=== PATIENT | female | born 1980 | race Caucasian/White ===

== ENCOUNTER 2022-02-22 13:25 | Emergency (ER) | payer BC ==
[~2022-02-22] VITALS: Ht 162.6 cm; Wt 108.9 kg
[~2022-02-22 13:25] MED LIST: AMOX500 PO; BUPR1 PO; CARI350; CEFP200 PO; CEPH500 PO; CLON1; CYCL10 PO; DEXT40GEL PO; DOCU100 PO; DOXY100 PO; Diflucan100 MG PO; Diflucan150 MG PO; ESCI10; ESCI20; ESTRADIOL1 MG PO; FENT100TP; FENT100TP TOP; FENT50TP TOP; Flagyl500 MG PO; HYDACE10B PO; HYDACE5 PO; HYDMOR2 PO; IBUHYD PO; IBUP600 PO; IBUP800 PO; KETO10 PO; LAMO100; LAMO25; LORA1 PO; MECL25 PO; META800 PO; NAPR500 PO; NAPR550 PO; NITR100CA PO; Norco 5-325 Ta1 EACH PO; O; ONDA4ODT MM; OXYACE10; OXYACE5T PO; OXYC20ER; OXYC5; PREG300 PO; PRENZ; PROC10 PO; PROM25 PO; QUET100; QUET25; RANI150 PO; RXCYCL10 PO; RXHYDMOR2 PO; RXNAPNA550 PO; RXTRAM50 PO; SUBOXONE 8 MG-1 EACH SL; TRAM50 PO; Valtrex1000 MG PO; Vibramycin100 MG PO; Zantac150 MG PO; Zofran Odt4 MG SL; [UNRECOGNIZED DRUG - OTHER]
[2022-02-22] MEDS ORDERED: IBU600 M1 PO (16:30)
[2022-02-22] MEDS ORDERED: CYCL10 PO (16:30)
[2022-02-22] MEDS ORDERED: METPRE4DP PO (16:30)
== END 2022-02-22 16:50 | disposition home or self-care (01) ==
LOC: ER 13:25
DX: M54.50 Low back pain, unspecified (principal); W18.30XA Fall on same level, unspecified, initial encounter; Z79.899 Other long term (current) drug therapy
CPT/HCPCS: 72100; A9270; J1885

== ENCOUNTER 2022-05-01 18:37 | Emergency (ER) | payer BC ==
[~2022-05-01] VITALS: Ht 162.6 cm; Wt 108.9 kg
[~2022-05-01 18:37] MED LIST changes: +IBU600 M1 PO; +METPRE4DP PO
[2022-05-01] MEDS ORDERED: PROZAC2010 PO (18:53)
[2022-05-01] MEDS ORDERED: ZOLOFT10013 PO (18:53)
[2022-05-01] MEDS ORDERED: LAMOTRIGINE100 M1 PO (18:53)
[2022-05-01] MEDS ORDERED: Vistaril50 MG PO (18:54)
[2022-05-01] MEDS ORDERED: Naltrexone HCl50 MG PO (18:54)
[2022-05-01] MEDS ORDERED: RISPERIDONE2 M9 PO (18:55)
[2022-05-01] MEDS ORDERED: ROPINIROLE HCL1 MG PO (18:55)
[2022-05-01 19:18] LABS: BASOPHILS ABSOLUTE AUTO 0.03 K/mm3 (0.00-0.23); BASOPHILS PERCENT AUTO 1 % (0-2); EOSINOPHILS ABSOLUTE AUTO 0.11 K/mm3 (0.00-0.68); EOSINOPHILS PERCENT AUTO 2 % (0-6); Hematocrit 34.8 % (33.0-51.0); Hemoglobin 11.7 g/dL (11.5-16.0); IMMATURE GRAN ABSOLUTE AUTO 0.01 K/mm3 (0.00-0.10); IMMATURE GRAN PERCENT AUTO 0 % (0-1); LYMPHOCYTES ABSOLUTE AUTO 1.83 K/mm3 (0.84-5.20); LYMPHOCYTES PERCENT AUTO 34 % (21-46); MONOCYTES ABSOLUTE AUTO 0.57 K/mm3 (0.16-1.47); MONOCYTES PERCENT AUTO 11 % (4-13); Mean Corpuscular HGB 27.6 pg (26.0-34.0); Mean Corpuscular HGB Conc 33.6 g/dL (31.5-36.5); Mean Corpuscular Volume 82 fL (80-100); NEUTROPHILS ABSOLUTE AUTO 2.79 K/mm3 (1.96-9.15); NEUTROPHILS PERCENT AUTO 52 % (41-73); Platelet Count 145 K/mm3 (150-400); RDW Coefficient Variation 14.1 % (11.7-14.2); RDW Standard Deviation 41.6 fL (35.1-46.3); Red Blood Cell Count 4.24 M/mm3 (3.80-5.20); White Blood Cell Count 5.34 K/mm3 (4.00-11.30)
[2022-05-01 19:30] LABS: Albumin, Blood 3.3 g/dL (3.4-5.0); Bilirubin, Total 0.2 mg/dL (0.1-1.0); Bun/Creatinine Ratio 10.4 (12.0-20.0); Calcium, Blood 7.8 mg/dL (8.5-10.1); Creatinine, Blood 1.06 mg/dL (0.40-1.00); Globulin, Blood 3.4 g/dL (2.2-4.0); Potassium, Blood 3.4 mmol/L (3.5-5.5); Total Protein, Blood 6.7 g/dL (6.4-8.2)
== END 2022-05-01 22:25 | disposition home or self-care (01) ==
LOC: ER 18:37
PROVIDERS: Student in an Organized Health Care Education/Training Program
DX: R07.9 Chest pain, unspecified (principal); Z79.899 Other long term (current) drug therapy
CPT/HCPCS: 80053; 83690; 84484; 85025; 93005; 93010

== ENCOUNTER 2022-06-08 02:24 | Emergency (ER) | payer BC ==
[~2022-06-08] VITALS: Ht 162.6 cm; Wt 98.4 kg
[~2022-06-08 02:24] MED LIST changes: +LAMOTRIGINE100 M1 PO; +Naltrexone HCl50 MG PO; +PROZAC2010 PO; +RISPERIDONE2 M9 PO; +ROPINIROLE HCL1 MG PO; +Vistaril50 MG PO; +ZOLOFT10013 PO
[2022-06-08 02:41] LABS: BASOPHILS ABSOLUTE AUTO 0.07 K/mm3 (0.00-0.23); BASOPHILS PERCENT AUTO 1 % (0-2); EOSINOPHILS ABSOLUTE AUTO 0.01 K/mm3 (0.00-0.68); EOSINOPHILS PERCENT AUTO 0 % (0-6); Hematocrit 42.4 % (33.0-51.0); Hemoglobin 14.6 g/dL (11.5-16.0); IMMATURE GRAN PERCENT AUTO 1 % (0-1); LYMPHOCYTES ABSOLUTE AUTO 1.52 K/mm3 (0.84-5.20); LYMPHOCYTES PERCENT AUTO 12 % (21-46); MONOCYTES ABSOLUTE AUTO 0.56 K/mm3 (0.16-1.47); MONOCYTES PERCENT AUTO 4 % (4-13); Mean Corpuscular HGB 28.1 pg (26.0-34.0); Mean Corpuscular HGB Conc 34.4 g/dL (31.5-36.5); Mean Corpuscular Volume 82 fL (80-100); Mean Platelet Volume 8.9 fL (9.1-12.4); NEUTROPHILS ABSOLUTE AUTO 10.78 K/mm3 (1.96-9.15); NEUTROPHILS PERCENT AUTO 83 % (41-73); Platelet Count 185 K/mm3 (150-400); RDW Coefficient Variation 16.1 % (11.7-14.2); RDW Standard Deviation 44.7 fL (35.1-46.3); Red Blood Cell Count 5.19 M/mm3 (3.80-5.20); White Blood Cell Count 13.04 K/mm3 (4.00-11.30)
[2022-06-08 02:59] LABS: Albumin, Blood 4.4 g/dL (3.4-5.0); Albumin/Globulin Ratio 1.1 (0.8-1.8); Bilirubin, Total 0.3 mg/dL (0.1-1.0); Bun/Creatinine Ratio 10.3 (12.0-20.0); Calcium, Blood 8.8 mg/dL (8.5-10.1); Creatinine, Blood 0.88 mg/dL (0.40-1.00); Potassium, Blood 3.1 mmol/L (3.5-5.5); Total Protein, Blood 8.4 g/dL (6.4-8.2)
[2022-06-08] MEDS ORDERED: CELEBREX200 MG PO (03:09)
[2022-06-08] MEDS ORDERED: NEURONTIN40010 PO (03:10)
[2022-06-08] MEDS ORDERED: ATOMOXETINE HCL40 M3 PO (03:11)
[2022-06-08] MEDS ORDERED: OZEMPIC0.25 MG/01 SQ (03:12)
[2022-06-08 06:00] VITALS: BP 123/90
== END 2022-06-08 06:08 | disposition home or self-care (01) ==
LOC: ER 02:24
PROVIDERS: Student in an Organized Health Care Education/Training Program
DX: R51.9 Headache, unspecified (principal); E87.6 Hypokalemia; F31.9 Bipolar disorder, unspecified; Z79.899 Other long term (current) drug therapy
CPT/HCPCS: 80053; 85025; A9270; J1200; J1885; J2405; J2765; J3010; J3475; J7030

== ENCOUNTER 2022-12-22 10:39 | Emergency (ER) | payer BC ==
[~2022-12-22] VITALS: Ht 162.6 cm; Wt 108.9 kg
[~2022-12-22 10:39] MED LIST changes: +ATOMOXETINE HCL40 M3 PO; +CELEBREX200 MG PO; +NEURONTIN40010 PO; +OZEMPIC0.25 MG/01 SQ
[2022-12-22] MEDS ORDERED: CELEBREX200 MG PO (10:49)
[2022-12-22] MEDS ORDERED: FUROSEMIDE20 MG PO (10:49)
[2022-12-22] MEDS ORDERED: Adipex-P37.5 M1 PO (10:49)
[2022-12-22] MEDS ORDERED: LURASIDONE HCL80 MG PO (10:50)
[2022-12-22 10:57] LABS: BASOPHILS ABSOLUTE AUTO 0.07 K/mm3 (0.00-0.23); BASOPHILS PERCENT AUTO 1 % (0-2); EOSINOPHILS ABSOLUTE AUTO 0.07 K/mm3 (0.00-0.68); EOSINOPHILS PERCENT AUTO 1 % (0-6); Hematocrit 39.9 % (33.0-51.0); Hemoglobin 13.5 g/dL (11.5-16.0); IMMATURE GRAN ABSOLUTE AUTO 0.08 K/mm3 (0.00-0.10); IMMATURE GRAN PERCENT AUTO 1 % (0-1); LYMPHOCYTES ABSOLUTE AUTO 2.03 K/mm3 (0.84-5.20); LYMPHOCYTES PERCENT AUTO 25 % (21-46); MONOCYTES ABSOLUTE AUTO 0.56 K/mm3 (0.16-1.47); MONOCYTES PERCENT AUTO 7 % (4-13); Mean Corpuscular HGB Conc 33.8 g/dL (31.5-36.5); Mean Corpuscular Volume 95 fL (80-100); Mean Platelet Volume 9.6 fL (9.1-12.4); NEUTROPHILS ABSOLUTE AUTO 5.21 K/mm3 (1.96-9.15); NEUTROPHILS PERCENT AUTO 65 % (41-73); Platelet Count 158 K/mm3 (150-400); RDW Coefficient Variation 13.1 % (11.7-14.2); RDW Standard Deviation 45.2 fL (35.1-46.3); Red Blood Cell Count 4.22 M/mm3 (3.80-5.20); White Blood Cell Count 8.02 K/mm3 (4.00-11.30)
[2022-12-22 11:30] LABS: Albumin, Blood 3.5 g/dL (3.4-5.0); Albumin/Globulin Ratio 0.9 (0.8-1.8); Bilirubin, Total 0.1 mg/dL (0.1-1.0); Bun/Creatinine Ratio 12.4 (12.0-20.0); Calcium, Blood 8.8 mg/dL (8.5-10.1); Creatinine, Blood 1.05 mg/dL (0.40-1.00); Globulin, Blood 4.1 g/dL (2.2-4.0); Potassium, Blood 3.5 mmol/L (3.5-5.5); Total Protein, Blood 7.6 g/dL (6.4-8.2)
[2022-12-22 14:19] VITALS: BP 121/63
== END 2022-12-22 14:20 | disposition home or self-care (01) ==
LOC: ER 10:39
PROVIDERS: Student in an Organized Health Care Education/Training Program
DX: E86.0 Dehydration (principal); Z79.899 Other long term (current) drug therapy
CPT/HCPCS: 80053; 82947; 83735; 85025; 93005; 93010; 96360; 96361; 99284-25; J7030

== ENCOUNTER 2023-12-05 07:17 | Emergency (ER) | payer BC ==
[~2023-12-05] VITALS: Ht 162.6 cm; Wt 98.9 kg
[~2023-12-05 07:17] MED LIST changes: +Adipex-P37.5 M1 PO; +FUROSEMIDE20 MG PO; +LEVE500 PO; +LURASIDONE HCL80 MG PO; +Robaxin750 MG PO
[2023-12-05 09:02] LABS: Influenza A, PCR NEGATIVE (NEGATIVE); Influenza B, PCR NEGATIVE (NEGATIVE); Resp Syncytial Virus, PCR NEGATIVE (NEGATIVE); SARS-Cov-2 (COVID-19) PCR, MMC NEGATIVE (NEGATIVE)
[2023-12-05 09:15] VITALS: BP 142/97
== END 2023-12-05 09:23 | disposition home or self-care (01) ==
LOC: ER 07:17
PROVIDERS: Emergency Medicine
DX: B34.9 Viral infection, unspecified (principal); Z79.899 Other long term (current) drug therapy; Z79.52 Long term (current) use of systemic steroids; Z79.1 Long term (current) use of non-steroidal anti-inflammatories (NSAID)
CPT/HCPCS: 0241U; 99283

== ENCOUNTER 2024-02-18 17:58 | Emergency (ER) | payer BC ==
[~2024-02-18] VITALS: Ht 152.4 cm; Wt 104.3 kg
[2024-02-18 18:41] VITALS: BP 127/64
[2024-02-18 19:02] LABS: BASOPHILS ABSOLUTE AUTO 0.07 K/mm3 (0.00-0.23); BASOPHILS PERCENT AUTO 1 % (0-2); EOSINOPHILS ABSOLUTE AUTO 0.09 K/mm3 (0.00-0.68); EOSINOPHILS PERCENT AUTO 1 % (0-6); Hematocrit 37.8 % (33.0-51.0); Hemoglobin 13.3 g/dL (11.5-16.0); IMMATURE GRAN ABSOLUTE AUTO 0.03 K/mm3 (0.00-0.10); IMMATURE GRAN PERCENT AUTO 0 % (0-1); LYMPHOCYTES ABSOLUTE AUTO 1.94 K/mm3 (0.84-5.20); LYMPHOCYTES PERCENT AUTO 24 % (21-46); MONOCYTES ABSOLUTE AUTO 0.62 K/mm3 (0.16-1.47); MONOCYTES PERCENT AUTO 8 % (4-13); Mean Corpuscular HGB 32.2 pg (26.0-34.0); Mean Corpuscular HGB Conc 35.2 g/dL (31.5-36.5); Mean Corpuscular Volume 92 fL (80-100); Mean Platelet Volume 9.2 fL (9.1-12.4); NEUTROPHILS ABSOLUTE AUTO 5.28 K/mm3 (1.96-9.15); NEUTROPHILS PERCENT AUTO 66 % (41-73); Platelet Count 194 K/mm3 (150-400); RDW Coefficient Variation 13.6 % (11.7-14.2); RDW Standard Deviation 45.8 fL (35.1-46.3); Red Blood Cell Count 4.13 M/mm3 (3.80-5.20); White Blood Cell Count 8.03 K/mm3 (4.00-11.30)
[2024-02-18 19:24] LABS: Albumin, Blood 3.4 g/dL (3.4-5.0); Albumin/Globulin Ratio 0.9 (0.8-1.8); Bilirubin, Total 0.3 mg/dL (0.1-1.0); Bun/Creatinine Ratio 7.6 (12.0-20.0); Calcium, Blood 8.8 mg/dL (8.5-10.1); Creatinine, Blood 0.53 mg/dL (0.40-1.00); Globulin, Blood 3.6 g/dL (2.2-4.0); Potassium, Blood 3.2 mmol/L (3.5-5.5)
[2024-02-18] MEDS ORDERED: Ketorolac Tromethamine 30mg Vial IV ONE (21:40)
== END 2024-02-18 22:06 | disposition home or self-care (01) ==
LOC: ER 17:58
PROVIDERS: Physician Assistant
DX: M54.50 Low back pain, unspecified (principal); G89.29 Other chronic pain; Z87.891 Personal history of nicotine dependence; Z79.899 Other long term (current) drug therapy; Z79.1 Long term (current) use of non-steroidal anti-inflammatories (NSAID)
CPT/HCPCS: 80053; 85025; 96374; 99283-25; J1885